=== PATIENT | female | born 1955 | race Caucasian/White ===

== ENCOUNTER 2017-07-16 14:36 | Inpatient (IN) | payer OTHER ==
[~2017-07-16] VITALS: Ht 165.1 cm; Wt 64.2 kg
[2017-07-16 16:00] VITALS: BP 141/70; PULSE 60; RESP 18; TEMP 98.4; O2SAT 99
[2017-07-16] MEDS ORDERED: cloNIDine HCL 0.1 MG TAB PO PRN (17:45)
[2017-07-16] MEDS ORDERED: hydrOXYzine HCL 50 MG TAB PO PRN (17:45)
[2017-07-16] MEDS ORDERED: ACETAMINOPHEN 325 MG TAB PO PRN (17:45)
[2017-07-16] MEDS ORDERED: BENZTROPINE MESYLATE 1 MG TAB PO PRN (17:45)
[2017-07-16] MEDS ORDERED: MAGNESIUM HYDROXIDE SUSP 30 ML CUP PO PRN (17:45)
[2017-07-16] MEDS ORDERED: DEXTROSE 50% IN WATER 50 ML VIAL(D50) IV PUSH PRN (17:45)
[2017-07-16] MEDS ORDERED: ALUMINUM/MAGNESIUM/SIMETH 30 ML CUP PO PRN (17:45)
[2017-07-16] MEDS ORDERED: GLUCAGON 1 MG/ML VIAL OTHER PRN (17:45)
[2017-07-16] MEDS ORDERED: BENZTROPINE MESYLATE 2 MG/2 ML VIAL IM PRN (17:45)
[2017-07-16] MEDS ORDERED: NICOTINE 21 MG/24 HR PATCH T-DERMAL PRN (20:30)
[2017-07-16] MEDS ORDERED: PILL SPLITTER OTHER PRN (20:45)
[2017-07-16] MEDS ORDERED: amLODIPine BESYLATE 5 MG TAB PO SCH (21:00)
[2017-07-16] MEDS: INSULIN ASPART SUPPLEMENTAL SCALE SQ SCH (21:00)
[2017-07-16] MEDS ORDERED: LISINOPRIL 20 MG TAB PO SCH (21:00)
[2017-07-17 06:51] VITALS: BP 170/69; PULSE 66; RESP 16; TEMP 97.9; O2SAT 98
[2017-07-17] MEDS: INSULIN ASPART SUPPLEMENTAL SCALE SQ SCH ×4 (07:30→21:00)
[2017-07-17] MEDS: REMOVE OLD NICOTINE PATCH T-DERMAL SCH (08:26)
[2017-07-17] MEDS ORDERED: PANTOPRAZOLE SOD 40 MG DELAYED RELEASE TAB PO SCH (09:00)
--- NOTE | 2017-07-17 09:52 | PD.CONS ---
HPI Service [facility] Hospitalists Consult Requested By Primary Care Physician Unknown Diagnoses: History of Present Illness This is a 61-year-old female with a past medical history which includes Hypertension, hypothyroidism, chronic lower back pain, diabetes mellitus, GERD, gout. Patient admitted to the inpatient psychiatric center for adjustment disorder after a recent suicide attempt and hospitalization at [facility]. Patient was initially admitted on 07/11/2017 after an attempted suicide with ingestion of approximately 30 trazodone 50 mg each. Patient was initially intubated and treated in ICU was then extubated 07/13/17. Patient was hospitalized she was treated for aspiration pneumonitis was on cefepime and vancomycin for approximately 48 hours prior to then DC'd. We've been consulted for assistance with management of chronic medical conditions and lisinopril dosing. Patient complaining of vaginal yeast infection. Patient offers no other complaints at this time. Review of Systems Constitutional: DENIES: Fatigue, Fever, Chills Eyes: DENIES: Blurred vision, Diplopia, Vision loss Respiratory: COMPLAINS OF: Cough (nonproductive), DENIES: Sputum production, Shortness of breath Cardiovascular: DENIES: Chest pain, Palpitations, Dyspnea on Exertion, Lower Extremity Edema Gastrointestinal: DENIES: Abdominal pain, Constipation, Diarrhea, Nausea, Vomiting Neurologic: DENIES: Abnormal gait, Localized weakness, Speech Problems Psychiatric: DENIES: Anxiety, Confusion, Depression Past Family Social History Past Medical History Hypertension, hypothyroidism, chronic lower back pain, diabetes mellitus, GERD, gout Past Surgical History Appendectomy, colonoscopy, EGD with biopsy, foot surgery, gallbladder surgery, hemorrhoidectomy, left hip surgery, incisional breast biopsy, knee arthroscopically Reported Medications Amlodipine 5 mg by mouth one tablet daily Diclofenac sodium 50 mg one tablet by mouth every 12 hours fluoxetine 20 mg 2 capsules by mouth every morning Gabapentin 400 mg one capsule 4 times a day. Levothyroxine 137 mcg 1 tablet daily Lisinopril 40 mg 2 tablets at bedtime Pantoprazole 40 mg one tablet every morning Vitamin D 50,000 units 1 capsule weekly Allergies: Coded Allergies: Penicillins (Unverified Allergy, Unknown, 07/16/17) Active Ordered Medications Current Medications Medications (Trade) Dose Ordered Sig/Varun Route Start Time Stop Time Status Last Admin (Benadryl) 50 mg HS PRN PO 07/16/17 17:45 (Tylenol) 650 mg Q4H PRN PO 07/16/17 17:45 (Milk Of Magnesia Liq) 30 ml DAILY PRN PO 07/16/17 17:45 (Mag-Al Plus Susp Liq) 30 ml Q6H PRN PO 07/16/17 17:45 (Habitrol 21 Mg Patch.24 Hr) 1 patch DAILY PRN T-DERMAL 07/16/17 20:30 (Atarax) 50 mg Q6H PRN PO 07/16/17 17:45 (Cogentin) 1 mg Q12H PRN PO 07/16/17 17:45 (Cogentin Inj) 1 mg Q12H PRN IM 07/16/17 17:45 (D50w (Vial) Inj) 50 ml UNSCH PRN IV PUSH 07/16/17 17:45 (Glucagon Inj) 1 mg UNSCH PRN OTHER 07/16/17 17:45 (NovoLOG SUPPLEMENTAL SCALE) 1 ACHS SLIDING SCALE SQ 07/16/17 21:00 (Norvasc) 5 mg HS PO 07/16/17 21:00 07/16/17 22:12 (Prinivil) 40 mg HS PO 07/16/17 21:00 07/16/17 22:12 (Synthroid) 125 mcg DAILY@0600 PO 07/17/17 06:00 (Protonix) 40 mg DAILY PO 07/17/17 09:00 07/17/17 08:23 (Catapres) 0.1 mg Q8HR PRN PO 07/16/17 17:45 Miscellaneous Information 1 DAILY T-DERMAL 07/17/17 09:00 (Synthroid) 12.5 mcg DAILY@0600 PO 07/17/17 06:00 (Pill Splitter) 1 ea UNSCH PRN OTHER 07/16/17 20:45 Family History noncontributory Social History EtOH use Current smoker Physical Exam Vital Signs Vital Signs Date Time Temp Pulse Resp B/P (MAP) Pulse Ox O2 Delivery O2 Flow Rate FiO2 07/17/17 06:51 97.9 66 16 170/69 (102) 98 07/16/17 16:00 98.4 60 18 141/70 (93) 99 Physical Exam GENERAL: This is a well-nourished, well-developed patient, in no apparent distress. SKIN: No rashes, ecchymoses or lesions. Cool and dry. HEAD: Atraumatic. Normocephalic. No temporal or scalp tenderness. EYES: Extraocular motions intact. No scleral icterus. No injection or drainage. ENT: Nose without bleeding, purulent drainage or septal hematoma. Throat without erythema, tonsillar hypertrophy or exudate. Uvula midline. Airway patent. NECK: Trachea midline. No JVD or lymphadenopathy. Supple, nontender, no meningeal signs. CARDIOVASCULAR: Regular rate and rhythm without murmurs, gallops, or rubs. RESPIRATORY: Clear to auscultation. Breath sounds equal bilaterally. No wheezes , rales, or rhonchi. GASTROINTESTINAL: Abdomen soft, non-tender, nondistended. MUSCULOSKELETAL: Extremities without clubbing, cyanosis, or edema. No joint tenderness, effusion, or edema noted. No calf tenderness. Negative Homans sign bilaterally. NEUROLOGICAL: Awake and alert. Cranial nerves II through XII intact. Motor and sensory grossly within normal limits. Five out of 5 muscle strength in all muscle groups. Normal speech. Assessment and Plan Problem List: (1) Adjustment disorder ICD Codes: F43.20 - Adjustment disorder, unspecified Plan: Patient with recent suicide attempt Management per psychiatric team (2) Diabetes mellitus ICD Codes: E11.9 - Type 2 diabetes mellitus without complications Status: Chronic Plan: diabetic diet accucheck ACHS (3) GERD (gastroesophageal reflux disease) ICD Codes: K21.9 - Gastro-esophageal reflux disease without esophagitis Plan: Protonix (4) Vaginal yeast infection ICD Codes: B37.3 - Candidiasis of vulva and vagina Plan: Diflucan by mouth 3 days (5) Hypothyroidism ICD Codes: E03.9 - Hypothyroidism, unspecified Plan: Continue home levothyroxine 137.5 mcg per day TSH pending (6) HTN (hypertension) ICD Codes: I10 - Essential (primary) hypertension Plan: Continue home Norvasc 5 mg daily will change lisinopril to 20 mg BID Clonidine as needed Monitor blood pressure trended chest as necessary Assessment and Plan Patient examined. Assessment and plan formulated with Eduarda Kovacs PA-C. I agree with the above. Problem Qualifiers (1) Diabetes mellitus: Eduarda Kovacs Jul 17, 2017 09:52 Geraldo Montez DO Jul 23, 2017 00:17
[2017-07-17] MEDS ORDERED: AMLO5TAB2 PO (10:04)
[2017-07-17] MEDS ORDERED: LISI40TA PO (10:07)
[2017-07-17] MEDS ORDERED: FLUO40CA PO (10:09)
[2017-07-17] MEDS ORDERED: LEVO137T2 PO (10:09)
[2017-07-17] MEDS ORDERED: PANT40TA3 PO (10:10)
[2017-07-17 10:13] LABS: AUTOMATED NEUTROPHIL # 3.3 TH/MM3 (1.8-7.7); BASOPHIL % 0.5 % (0.0-2.0); EOSINOPHIL # 0.2 TH/MM3 (0-0.4); EOSINOPHIL % 3.8 % (0.0-4.0); HEMATOCRIT 32.5 % (35.0-46.0); LYMPH % 16.7 % (9.0-44.0); LYMPHOCYTE # 0.8 TH/MM3 (1.0-4.8); MEAN CELL VOLUME 91.5 FL (80.0-100.0); MEAN CORPUSCULAR HEMOGLOBIN 30.9 PG (27.0-34.0); MEAN CORPUSCULAR HGB CONC 33.8 % (32.0-36.0); MEAN PLATELET VOLUME 9.9 FL (7.0-11.0); MONO % 11.7 % (0.0-8.0); MONOCYTE # 0.6 TH/MM3 (0-0.9); NEUT % 67.3 % (16.0-70.0); PLATELET COUNT 85 TH/MM3 (150-450); RED BLOOD COUNT 3.55 MIL/MM3 (4.00-5.30); RED CELL DISTRIBUTION WIDTH 14.4 % (11.6-17.2); WHITE BLOOD COUNT 4.9 TH/MM3 (4.0-11.0)
[2017-07-17 10:15] VITALS: BP 153/65; PULSE 57; RESP 18; TEMP 98.3; O2SAT 97
[2017-07-17 10:46] LABS: ALBUMIN 1.9 GM/DL (3.4-5.0); AST (GOT) 34 U/L (15-37); BICARBONATE 27.5 MEQ/L (21.0-32.0); BLOOD UREA NITROGEN 12 MG/DL (7-18); CALCIUM 8.2 MG/DL (8.5-10.1); CHLORIDE 104 MEQ/L (98-107); CREATININE 0.86 MG/DL (0.50-1.00); GLOMERULAR FILTRATION RATE 67 ML/MIN (>89); GLUCOSE,RANDOM 166 MG/DL (74-106); SODIUM (NA) 140 MEQ/L (136-145)
[2017-07-17 10:47] LABS: CHOLESTEROL 95 MG/DL (120-200); TRIGLYCERIDES 128 MG/DL (42-150)
[2017-07-17 10:57] LABS: ALKALINE PHOSPHATASE 70 U/L (45-117); ALT (GPT) 21 U/L (10-53); CHOLESTEROL/ HDL RATIO 4.61 RATIO; HDL CHOLESTEROL 20.6 MG/DL (40.0-60.0); LDL CHOLESTEROL 49 MG/DL (0-99); TOTAL BILIRUBIN ADULT 0.6 MG/DL (0.2-1.0); TOTAL PROTEIN 5.2 GM/DL (6.4-8.2)
[2017-07-17] MEDS: FLUCONAZOLE 100 MG TAB PO SCH (11:37)
[2017-07-17] MEDS ORDERED: cloNIDine HCL 0.1 MG TAB PO PRN (11:45)
[2017-07-17] MEDS ORDERED: LISINOPRIL 20 MG TAB PO SCH (12:00)
[2017-07-17] MEDS ORDERED: hydrOXYzine HCL 50 MG TAB PO PRN (14:30)
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
[2017-07-17 17:22] LABS: HEMOGLOBIN A1C 5.5 % (4.3-6.0)
[2017-07-17 18:45] VITALS: BP 142/66; PULSE 59; RESP 16; TEMP 99; O2SAT 98
[2017-07-17 18:46] VITALS: BP 142/66; PULSE 59; RESP 16; TEMP 99; O2SAT 98
--- NOTE | 2017-07-17 21:27 | EKG ---
Date Performed: 07/17/2017 Time Performed: 08:30:44 PTAGE: 61 years EKG: Sinus rhythm POSSIBLE ANTERIOR MYOCARDIAL INFARCTION , PROBABLY OLD BORDERLINE ECG NO PREVIOUS TRACING DOCTOR: Miguel Angel Flores Interpretating Date/Time 07/17/2017 21:26:12
[2017-07-17] MEDS: ARIPiprazole 10 MG TAB PO SCH (21:51)
[2017-07-17] MEDS: amLODIPine BESYLATE 5 MG TAB PO SCH (21:51)
[2017-07-17] MEDS: LISINOPRIL 20 MG TAB PO SCH (21:51)
[2017-07-18] MEDS: LEVOTHYROXINE SODIUM 125 MCG TAB PO SCH ×2 (05:51→05:53)
[2017-07-18] MEDS: LEVOTHYROXINE SODIUM 25 MCG TAB PO SCH ×2 (05:51→05:54)
[2017-07-18 05:53] VITALS: BP 136/61; PULSE 58; RESP 17; TEMP 98.9; O2SAT 100
[2017-07-18] MEDS: INSULIN ASPART SUPPLEMENTAL SCALE SQ SCH ×4 (08:00→21:00)
[2017-07-18] MEDS ORDERED: NON-FORMULARY DRUG (Levothyroxine 137 MCG) PO SCH (09:00)
[2017-07-18] MEDS ORDERED: FLUoxetine HCL 20 MG CAP PO SCH (09:00)
[2017-07-18] MEDS: PANTOPRAZOLE SOD 40 MG DELAYED RELEASE TAB PO SCH (09:56)
[2017-07-18] MEDS: FLUoxetine HCL 20 MG CAP PO SCH (09:57)
[2017-07-18] MEDS: FLUCONAZOLE 100 MG TAB PO SCH (09:57)
[2017-07-18] MEDS: REMOVE OLD NICOTINE PATCH T-DERMAL SCH (09:57)
--- NOTE | 2017-07-18 13:31 | HHI.PYPN ---
Subjective Chief Complaint: depressed with suicide attempt Remarks Patient was seen and case discussed with nursing. Patient is feeling guilty and shameful about her suicide attempt. She describes various stressors at home that caused her to overdose. She is not going to any groups and largely keeps to herself. Affect is constricted and mood remains depressed. She however denies suicidal or homicidal ideation intent or plan. She is tolerating her medications well Mental Status Examination Appearance: Appropriate Consciousness: Alert Orientation: x4 Motor Activity: Normal gait Speech: Unremarkable Language: Adequate Fund of Knowledge: Adequate Attention and Concentration: Adequate Memory: Unremarkable Mood: Sad, Anxious (mildly) Affect: Other Thought Process & Associations: Intact Thought Content: Appropriate Hallucination Type: None Delusion Type: None Suicidal Ideation: No (denies at the present time) Suicidal Plan: No Suicidal Intention: No Homicidal Ideation: No Homicidal Plan: No Homicidal Intention: No Insight: Fair Judgment: Adequate Results Vitals/IOs Vital Signs Date Time Temp Pulse Resp B/P (MAP) Pulse Ox O2 Delivery O2 Flow Rate FiO2 07/18/17 05:53 98.9 58 17 136/61 (86) 100 Assessment & Plan Problem List: (1) Major depressive disorder, recurrent severe without psychotic features ICD Codes: F33.2 - Major depressive disorder, recurrent severe without psychotic features Assessment & Plan Continue current treatment plan Justification for Cont. Inpt. Patient would decompensate in a less restrictive setting Request HC Surrog/Guard Advoc?: No Per Hamm DO Jul 18, 2017 13:31
[2017-07-18 18:22] VITALS: BP 151/66; PULSE 56; RESP 17; TEMP 98.3; O2SAT 96
[2017-07-18] MEDS: ARIPiprazole 10 MG TAB PO SCH (21:58)
[2017-07-18] MEDS: LISINOPRIL 20 MG TAB PO SCH (21:58)
[2017-07-18] MEDS: amLODIPine BESYLATE 5 MG TAB PO SCH (21:59)
[2017-07-19] MEDS: LEVOTHYROXINE SODIUM 125 MCG TAB PO SCH (06:29)
[2017-07-19] MEDS: LEVOTHYROXINE SODIUM 25 MCG TAB PO SCH (06:29)
[2017-07-19] MEDS: INSULIN ASPART SUPPLEMENTAL SCALE SQ SCH ×4 (08:00→21:00)
[2017-07-19] MEDS: REMOVE OLD NICOTINE PATCH T-DERMAL SCH (09:00)
[2017-07-19] MEDS: FLUoxetine HCL 20 MG CAP PO SCH (09:30)
[2017-07-19] MEDS: FLUCONAZOLE 100 MG TAB PO SCH (09:31)
[2017-07-19] MEDS: PANTOPRAZOLE SOD 40 MG DELAYED RELEASE TAB PO SCH (09:31)
--- NOTE | 2017-07-19 12:51 | HHI.PYPN ---
Subjective Chief Complaint: depressed with suicide attempt Remarks Patient was seen and case discussed with nursing. Patient is pleasant and cooperative with exam. She is largely seclusive to her room and was encouraged to come out. Patient says her mood today is a 5 out of 10 and feels that she is sleeping too much. She denies suicidal or homicidal ideation intent or plan. Affect remains quite blunted Mental Status Examination Appearance: Appropriate Consciousness: Alert Orientation: x4 Motor Activity: Normal gait Speech: Unremarkable Language: Adequate Fund of Knowledge: Adequate Attention and Concentration: Adequate Memory: Unremarkable Mood: Sad, Anxious (mildly) Affect: Blunt Thought Process & Associations: Intact Thought Content: Appropriate Hallucination Type: None Delusion Type: None Suicidal Ideation: No (denies at the present time) Suicidal Plan: No Suicidal Intention: No Homicidal Ideation: No Homicidal Plan: No Homicidal Intention: No Insight: Fair Judgment: Adequate Results Vitals/IOs Vital Signs Date Time Temp Pulse Resp B/P (MAP) Pulse Ox O2 Delivery O2 Flow Rate FiO2 07/18/17 18:22 98.3 56 17 151/66 (94) 96 Assessment & Plan Problem List: (1) Major depressive disorder, recurrent severe without psychotic features ICD Codes: F33.2 - Major depressive disorder, recurrent severe without psychotic features Assessment & Plan Continue current treatment plan Justification for Cont. Inpt. Patient will decompensate in a less restrictive setting Request HC Surrog/Guard Advoc?: No Per Hamm DO Jul 19, 2017 12:51
[2017-07-19 16:16] VITALS: BP 131/63; PULSE 55; RESP 18; TEMP 98.6; O2SAT 96
[2017-07-19] MEDS: amLODIPine BESYLATE 5 MG TAB PO SCH (21:52)
[2017-07-19] MEDS: LISINOPRIL 20 MG TAB PO SCH (21:52)
[2017-07-19] MEDS: ARIPiprazole 10 MG TAB PO SCH (21:52)
[2017-07-20] MEDS: LEVOTHYROXINE SODIUM 125 MCG TAB PO SCH (06:11)
[2017-07-20] MEDS: LEVOTHYROXINE SODIUM 25 MCG TAB PO SCH (06:11)
[2017-07-20 06:18] VITALS: BP 125/54; PULSE 59; RESP 16; TEMP 97.8; O2SAT 98
[2017-07-20] MEDS: INSULIN ASPART SUPPLEMENTAL SCALE SQ SCH ×4 (08:00→20:52)
[2017-07-20] MEDS: REMOVE OLD NICOTINE PATCH T-DERMAL SCH (09:00)
[2017-07-20] MEDS: PANTOPRAZOLE SOD 40 MG DELAYED RELEASE TAB PO SCH (09:28)
[2017-07-20] MEDS: FLUoxetine HCL 20 MG CAP PO SCH (09:28)
--- NOTE | 2017-07-20 15:19 | HHI.PYPN ---
Subjective Chief Complaint: depressed with suicide attempt Remarks Patient seen in her room with counselor Asia and nurse Barbara, chart review, patient compliant medication. If remains quite depressed crying and sad. She has some insight into her need to put more effort in focus on herself, but the grandchildren that are involved. It appears her is flying down there is some is seeking definitive flight. At the present time patient remains quite depressed though she does denies suicidality at this time. For now continue treatment will increase at bedtime Abilify to 15 mg Review of Systems Except as stated in HPI: all other systems reviewed are Neg Mental Status Examination Appearance: Appropriate Consciousness: Alert Orientation: x4 Motor Activity: Normal gait Speech: Unremarkable Language: Adequate Fund of Knowledge: Adequate Attention and Concentration: Adequate Memory: Unremarkable Mood: Sad, Anxious (mildly) Affect: Blunt Thought Process & Associations: Intact Thought Content: Appropriate Hallucination Type: None Delusion Type: None Suicidal Ideation: No (denies at the present time) Suicidal Plan: No Suicidal Intention: No Homicidal Ideation: No Homicidal Plan: No Homicidal Intention: No Insight: Fair Judgment: Adequate Results Vitals/IOs Vital Signs Date Time Temp Pulse Resp B/P (MAP) Pulse Ox O2 Delivery O2 Flow Rate FiO2 07/20/17 06:18 97.8 59 16 125/54 (77) 98 Intake and Output 07/20/17 07/20/17 07/21/17 08:00 16:00 00:00 Intake Total 240 ml 240 ml Balance 240 ml 240 ml Assessment & Plan Problem List: (1) Major depressive disorder, recurrent severe without psychotic features ICD Codes: F33.2 - Major depressive disorder, recurrent severe without psychotic features Assessment & Plan Estimated LOS: days patient continues severely depressed crying sad decreased range intensity of her affect. Will increase at bedtime Abilify to 15 mg Justification for Cont. Inpt. At this time patient will decompensate if placed in a lower level of care Discharge Planning Need to discuss this with patient's when he arrives the next 1-2 days Request HC Surrog/Guard Advoc?: No Zeyad Mendoza MD Jul 20, 2017 15:19
--- NOTE | 2017-07-20 16:59 | PD.TTN ---
Patient Problems 1. Discharge planning 2. Medication compliance 3. Knowledge deficit 4. Lack of coping skills Progress Toward Goals Provider Present: Dr. Oswaldo Mendoza Provider Input: 07/20/2017; patient is stablizing with medication; assess for oupatient service Nurse(s) Present: RN Nurse(s) Input: 07/20/2017; Patient is eating and taking medication; very sad and depressed Psychiatric Counselors Present: DARI Chaudhary Psych Therapist Input: 07/20/2017; patient will be assess for outpatient service and dc needs Group Spec/RT/OT/QUIGLEY Present: Tito Javier OT Group Spec/RT/OT/QUIGLEY Input: 07/20/2017; patient is a new admission and will be assess for level of participation with groups Documentation Scribe: DARI Chaudhary Sandra LMHC Jul 20, 2017 16:59
[2017-07-20 18:40] VITALS: BP 128/60; PULSE 55; RESP 16; TEMP 98.3; O2SAT 97
[2017-07-20] MEDS: ARIPiprazole 15 MG TAB PO SCH (21:42)
[2017-07-20] MEDS: LISINOPRIL 20 MG TAB PO SCH (21:43)
[2017-07-20] MEDS: amLODIPine BESYLATE 5 MG TAB PO SCH (21:43)
[2017-07-21] MEDS: LEVOTHYROXINE SODIUM 25 MCG TAB PO SCH (05:26)
[2017-07-21] MEDS: LEVOTHYROXINE SODIUM 125 MCG TAB PO SCH (05:26)
[2017-07-21 06:18] VITALS: BP 119/53; PULSE 62; RESP 17; TEMP 98.7; O2SAT 96
[2017-07-21] MEDS: INSULIN ASPART SUPPLEMENTAL SCALE SQ SCH ×4 (08:00→20:20)
[2017-07-21] MEDS: REMOVE OLD NICOTINE PATCH T-DERMAL SCH (09:00)
[2017-07-21] MEDS: FLUoxetine HCL 20 MG CAP PO SCH (09:42)
[2017-07-21] MEDS: PANTOPRAZOLE SOD 40 MG DELAYED RELEASE TAB PO SCH (09:42)
--- NOTE | 2017-07-21 13:08 | HHI.PYPN ---
Subjective Chief Complaint: depressed with suicide attempt Remarks Patient seen in her room with nurse Elizabet, chart reviewed, patient compliant medication patient's mood continues to improve. There is somewhat better eye contact improved range intensity of her affect. Patient states she's been in contact with . He hopes to flying down here on the day she is discharged to stay with her in her apartment. Patient also states she would like to return to [facility] with him directly from her apartment. I feel patient is improving practitioner arrange for this discharge plan in the next 2- 3 days Review of Systems Except as stated in HPI: all other systems reviewed are Neg Mental Status Examination Appearance: Appropriate Consciousness: Alert Orientation: x4 Motor Activity: Normal gait Speech: Unremarkable Language: Adequate Fund of Knowledge: Adequate Attention and Concentration: Adequate Memory: Unremarkable Mood: Sad, Anxious (mildly) Affect: Blunt Thought Process & Associations: Intact Thought Content: Appropriate Hallucination Type: None Delusion Type: None Suicidal Ideation: No (denies at the present time) Suicidal Plan: No Suicidal Intention: No Homicidal Ideation: No Homicidal Plan: No Homicidal Intention: No Insight: Fair Judgment: Adequate Results Vitals/IOs Vital Signs Date Time Temp Pulse Resp B/P (MAP) Pulse Ox O2 Delivery O2 Flow Rate FiO2 07/21/17 06:18 98.7 62 17 119/53 (75) 96 Intake and Output 07/21/17 07/21/17 07/21/17 07:59 15:59 23:59 Intake Total 480 ml Balance 480 ml Assessment & Plan Problem List: (1) Major depressive disorder, recurrent severe without psychotic features ICD Codes: F33.2 - Major depressive disorder, recurrent severe without psychotic features Assessment & Plan Estimated LOS: days patient's depression is slowly resolving. She showing some insight into need to gain further independence to work with her also to little ways of asserting herself Justification for Cont. Inpt. Is time patient will decompensate if placed in a lower level of care Discharge Planning Possible going with from her apartment to [facility] soon Request HC Surrog/Guard Advoc?: No Zeyad Mendoza MD Jul 21, 2017 13:08
[2017-07-21 17:51] VITALS: BP 138/60; PULSE 65; RESP 17; TEMP 99.2; O2SAT 97
[2017-07-21 20:30] VITALS: BP 146/66; PULSE 59; RESP 16; TEMP 98.9; O2SAT 100
[2017-07-21] MEDS: amLODIPine BESYLATE 5 MG TAB PO SCH (20:30)
[2017-07-21] MEDS: ARIPiprazole 15 MG TAB PO SCH (20:30)
[2017-07-21] MEDS: diphenhydrAMINE HCL 50 MG CAP PO PRN (20:30)
[2017-07-21] MEDS: LISINOPRIL 20 MG TAB PO SCH (20:30)
[2017-07-21] MEDS: diphenhydrAMINE HCL 50 MG CAP PO SCH (22:17)
[2017-07-22] MEDS: diphenhydrAMINE HCL 50 MG CAP PO SCH ×4 (04:04→21:23)
[2017-07-22 05:43] VITALS: BP 127/56; PULSE 57; RESP 16; TEMP 99.4
[2017-07-22] MEDS: LEVOTHYROXINE SODIUM 25 MCG TAB PO SCH (05:54)
[2017-07-22] MEDS: LEVOTHYROXINE SODIUM 125 MCG TAB PO SCH (05:54)
[2017-07-22] MEDS: INSULIN ASPART SUPPLEMENTAL SCALE SQ SCH ×2 (07:39→12:00)
[2017-07-22] MEDS: FLUoxetine HCL 20 MG CAP PO SCH (08:47)
[2017-07-22] MEDS: PANTOPRAZOLE SOD 40 MG DELAYED RELEASE TAB PO SCH (08:47)
[2017-07-22] MEDS: REMOVE OLD NICOTINE PATCH T-DERMAL SCH (08:49)
--- NOTE | 2017-07-22 14:28 | HHI.PYPN ---
Subjective Chief Complaint: depressed with suicide attempt Remarks Patient seen in her room with nurse caro, chart review patient compliant medications. Patient still depressed though it appears to be lifting somewhat. There is some anxiety related to discharge plans and her relationship with her family. However it appears her will be flying down here on Thursday. If patient continues to improve we'll consider discharge to her on 07/26 with possibility of she returning to [facility] with him is also noted the patient has developed on non-pruritic geographic appearing somewhat erythematous rash is basically truncal and down her upper legs. We'll have hospitalists assess this Review of Systems Except as stated in HPI: all other systems reviewed are Neg Mental Status Examination Appearance: Appropriate Consciousness: Alert Orientation: x4 Motor Activity: Normal gait Speech: Unremarkable Language: Adequate Fund of Knowledge: Adequate Attention and Concentration: Adequate Memory: Unremarkable Mood: Sad, Anxious (mildly) Affect: Blunt Thought Process & Associations: Intact Thought Content: Appropriate Hallucination Type: None Delusion Type: None Suicidal Ideation: No (denies at the present time) Suicidal Plan: No Suicidal Intention: No Homicidal Ideation: No Homicidal Plan: No Homicidal Intention: No Insight: Fair Judgment: Adequate Results Vitals/IOs Vital Signs Date Time Temp Pulse Resp B/P (MAP) Pulse Ox O2 Delivery O2 Flow Rate FiO2 07/22/17 05:43 99.4 57 16 127/56 (79) 07/21/17 20:30 100 Assessment & Plan Problem List: (1) Major depressive disorder, recurrent severe without psychotic features ICD Codes: F33.2 - Major depressive disorder, recurrent severe without psychotic features Assessment & Plan Estimated LOS: days patient continues depressed though showing some mild improvement. She is continuing to be significantly concerned related to relationship with her family. Her will be flying down here on 07/26. Patient continues to improve we'll consider discharge to him the possible return to [facility] with him will have hospitalist assess patient's rash Justification for Cont. Inpt. At this time patient will decompensate and placed in a lower level of care Discharge Planning See above Request HC Surrog/Guard Advoc?: No Zeyad Mendoza MD Jul 22, 2017 14:28
[2017-07-22] MEDS ORDERED: predniSONE 20 MG TAB PO ONE (16:00)
--- NOTE | 2017-07-22 16:07 | HHI.PR ---
Subjective Remarks [facility] Hospitalist team was re-consulted due to a new rash that began yesterday evening. The rash is located on her chest/trunk/back/upper extremities and more so on the upper thighs although it does extend down the calves She does not feel that its very pruritic at this time Denies any fevers or chills. No nausea/vomiting, diarrhea, abd pain, chest pain. She states that she has a sore throat which has been present since prior to her getting intubated at [facility]. Objective Vitals Vital Signs Date Time Temp Pulse Resp B/P (MAP) Pulse Ox O2 Delivery O2 Flow Rate FiO2 07/22/17 05:43 99.4 57 16 127/56 (79) 07/21/17 20:30 98.9 59 16 146/66 (92) 100 07/21/17 17:51 99.2 65 17 138/60 (86) 97 Objective Remarks General: NAD, AAOx3 Skin: Erythematous, maculopapular rash on the neck/trunk/chest/back/UE and upper thighs that blanches and is confluent in some areas. There are some areas on the calves that seem to be centered around follicles. There is erythema on the palms of the hands as well ENT: Thrush on the tongue and slight exudate in the posterior pharynx. No mucous membrane involvement. Chest: CTA Cardiac: Regular, systolic murmur Abd: +BS, soft ND/NT Ext: no edema A/P Problem List: (1) Adjustment disorder ICD Codes: F43.20 - Adjustment disorder, unspecified Plan: - Patient with recent suicide attempt - Management per psychiatric team (2) Rash and nonspecific skin eruption ICD Codes: R21 - Rash and other nonspecific skin eruption Status: Acute Plan: - Pt developed a diffuse rash on 06/20/17 which is maculopapular nonpruritic rash on the neck/trunk/chest/back/UE and upper thighs that blanches and is confluent in some areas. There are some areas on the calves that seem to be centered around follicles. There is erythema on the palms of the hands as well - There was no noted mucosal or conjunctival involvement - Consider possible drug rash, new medications she recently received are Abilify and Diflucan - She has been receiving Benadryl 50mg Q6H - Start Prednisone 60mg po x one dose today and 30mg po BID to start tomorrow - Check UA - Check CBC, CMP, ESR - Throat culture - Blood culture - Monitor clinical status (3) Diabetes mellitus ICD Codes: E11.9 - Type 2 diabetes mellitus without complications Status: Chronic Plan: - Diabetic diet - Accu check ACHS - Stop NovoLog SSI for now. BS has been stable. (4) GERD (gastroesophageal reflux disease) ICD Codes: K21.9 - Gastro-esophageal reflux disease without esophagitis Plan: - Protonix (5) Vaginal yeast infection ICD Codes: B37.3 - Candidiasis of vulva and vagina Plan: - Pt was given Diflucan by mouth 3 days (07/17-07/19) - Pt still with some noted thrush on examination - Given Nystatin S/S (6) Hypothyroidism ICD Codes: E03.9 - Hypothyroidism, unspecified Plan: - Continue home levothyroxine 137.5 mcg per day - TSH 2.010 (7) HTN (hypertension) ICD Codes: I10 - Essential (primary) hypertension Plan: - Pts Lisinopril was increased to 80mg HS on 07/17/17 - Change back to Lisinopril 20mg po BID and increase Norvasc to 10mg daily - Clonidine as needed - Monitor Problem Qualifiers (1) Diabetes mellitus: Nusrat Parra Jul 22, 2017 16:07
[2017-07-22 18:23] VITALS: BP 112/56; PULSE 76; RESP 16; TEMP 98.3; O2SAT 99
[2017-07-22] MEDS: NYSTATIN SUSP 500,000 U/5 ML CUP SWISH-SWAL SCH ×2 (18:33→21:23)
[2017-07-22] MEDS: ARIPiprazole 15 MG TAB PO SCH (21:23)
[2017-07-22] MEDS: amLODIPine BESYLATE 5 MG TAB PO SCH (21:23)
[2017-07-22] MEDS: LISINOPRIL 20 MG TAB PO SCH (21:24)
[2017-07-23 02:22] LABS: BILIRUBIN, URINE NEG (NEG); BLOOD, URINE NEG (NEG); GLUCOSE,URINE TRACE mg/dL (NEG); KETONE, URINE NEG (NEG); MUCUS URINE FEW /lpf (OCC); NITRITE,URINE NEG (NEG); SQUAMOUS EPITHELIAL CELL URINE 5 /hpf (0-5); URINE COLOR LIGHT-YELLOW (YELLW/STRAW); URINE LEUKOCYTE ESTERASE TRACE (NEG)
[2017-07-23] MEDS: diphenhydrAMINE HCL 50 MG CAP PO SCH ×3 (04:38→16:05)
[2017-07-23] MEDS: LEVOTHYROXINE SODIUM 25 MCG TAB PO SCH (04:38)
[2017-07-23] MEDS: LEVOTHYROXINE SODIUM 125 MCG TAB PO SCH (04:39)
[2017-07-23 06:05] VITALS: BP 119/65; PULSE 71; RESP 16; TEMP 98.1; O2SAT 100
[2017-07-23] MEDS ORDERED: predniSONE 10 MG TAB PO SCH (09:00)
[2017-07-23] MEDS: REMOVE OLD NICOTINE PATCH T-DERMAL SCH (09:00)
[2017-07-23] MEDS: FLUoxetine HCL 20 MG CAP PO SCH (09:24)
[2017-07-23] MEDS: PANTOPRAZOLE SOD 40 MG DELAYED RELEASE TAB PO SCH (09:25)
[2017-07-23] MEDS: NYSTATIN SUSP 500,000 U/5 ML CUP SWISH-SWAL SCH ×4 (09:25→21:00)
[2017-07-23] MEDS: amLODIPine BESYLATE 5 MG TAB PO SCH ×2 (09:26→22:31)
[2017-07-23] MEDS: LISINOPRIL 20 MG TAB PO SCH ×2 (09:26→22:31)
[2017-07-23 11:47] LABS: ALBUMIN 2.8 GM/DL (3.4-5.0); BICARBONATE 23.5 MEQ/L (21.0-32.0); CALCIUM 8.7 MG/DL (8.5-10.1); CREATININE 1.17 MG/DL (0.50-1.00); DIRECT BILIRUBIN ADULT 0.2 MG/DL (0.0-0.2)
[2017-07-23 11:50] LABS: INDIRECT BILIRUBIN 0.3 MG/DL (0.0-0.8); TOTAL BILIRUBIN ADULT 0.5 MG/DL (0.2-1.0); TOTAL PROTEIN 7.4 GM/DL (6.4-8.2)
[2017-07-23 11:51] LABS: AUTOMATED NEUTROPHIL # 6.5 TH/MM3 (1.8-7.7); BASOPHIL % 0.1 % (0.0-2.0); EOSINOPHIL % 0.1 % (0.0-4.0); LYMPH % 11.7 % (9.0-44.0); LYMPHOCYTE # 0.9 TH/MM3 (1.0-4.8); MEAN CELL VOLUME 92.9 FL (80.0-100.0); MEAN CORPUSCULAR HEMOGLOBIN 30.9 PG (27.0-34.0); MEAN CORPUSCULAR HGB CONC 33.2 % (32.0-36.0); MONO % 3.6 % (0.0-8.0); MONOCYTE # 0.3 TH/MM3 (0-0.9); NEUT % 84.5 % (16.0-70.0); PLATELET COUNT 146 TH/MM3 (150-450); RED BLOOD COUNT 3.88 MIL/MM3 (4.00-5.30); RED CELL DISTRIBUTION WIDTH 15.1 % (11.6-17.2); WHITE BLOOD COUNT 7.7 TH/MM3 (4.0-11.0)
[2017-07-23 13:04] LABS: WESTERGREN SEDIMENTATION RATE 41 mm/hr (0-30)
--- NOTE | 2017-07-23 13:17 | HHI.PYPN ---
Subjective Chief Complaint: depressed with suicide attempt Remarks Patient seen in [place] with nurse Xiao, chart reviewed, patient compliant medication. Patient somewhat anxious today because she needs to get [employer] computer to pay her rent. Otherwise she is still committed to going with the back up to [place]. He will be arriving in town on Tuesday 07/25. Patient denies suicidality homicidality voices or visions. For now continue treatment patient's rash persists remains somewhat pruritic around the superior peripheral margins Review of Systems Except as stated in HPI: all other systems reviewed are Neg Mental Status Examination Appearance: Appropriate Consciousness: Alert Orientation: x4 Motor Activity: Normal gait Speech: Unremarkable Language: Adequate Fund of Knowledge: Adequate Attention and Concentration: Adequate Memory: Unremarkable Mood: Sad, Anxious (mildly) Affect: Blunt Thought Process & Associations: Intact Thought Content: Appropriate Hallucination Type: None Delusion Type: None Suicidal Ideation: No (denies at the present time) Suicidal Plan: No Suicidal Intention: No Homicidal Ideation: No Homicidal Plan: No Homicidal Intention: No Insight: Fair Judgment: Adequate Results Labs Test 07/23/17 01:30 07/23/17 10:15 Urine Color LIGHT-YELLOW Urine Turbidity CLEAR Urine pH 6.0 Urine Specific [place] 1.003 Urine Protein NEG mg/dL Urine Glucose (UA) TRACE mg/dL Urine Ketones NEG mg/dL Urine Occult Blood NEG Urine Nitrite NEG Urine Bilirubin NEG Urine Urobilinogen LESS THAN 2.0 MG/DL Urine Leukocyte Esterase TRACE Urine RBC LESS THAN 1 /hpf Urine WBC 1 /hpf Urine Squamous Epithelial Cells 5 /hpf Urine Mucus FEW /lpf Microscopic Urinalysis Comment CULT NOT INDICATED White Blood Count 7.7 TH/MM3 Red Blood Count 3.88 MIL/MM3 Hemoglobin 12.0 GM/DL Hematocrit 36.0 % Mean Corpuscular Volume 92.9 FL Mean Corpuscular Hemoglobin 30.9 PG Mean Corpuscular Hemoglobin Concent 33.2 % Red Cell Distribution Width 15.1 % Platelet Count 146 TH/MM3 Mean Platelet Volume 11.0 FL Neutrophils (%) (Auto) 84.5 % Lymphocytes (%) (Auto) 11.7 % Monocytes (%) (Auto) 3.6 % Eosinophils (%) (Auto) 0.1 % Basophils (%) (Auto) 0.1 % Neutrophils # (Auto) 6.5 TH/MM3 Lymphocytes # (Auto) 0.9 TH/MM3 Monocytes # (Auto) 0.3 TH/MM3 Eosinophils # (Auto) 0.0 TH/MM3 Basophils # (Auto) 0.0 TH/MM3 CBC Comment DIFF FINAL Differential Comment Erythrocyte Sedimentation Rate 41 mm/hr Blood Urea Nitrogen 11 MG/DL Creatinine 1.17 MG/DL Random Glucose 257 MG/DL Total Protein 7.4 GM/DL Albumin 2.8 GM/DL Calcium Level 8.7 MG/DL Alkaline Phosphatase 87 U/L Aspartate Amino Transf (AST/SGOT) 20 U/L Alanine Aminotransferase (ALT/SGPT) 23 U/L Total Bilirubin 0.5 MG/DL Direct Bilirubin 0.2 MG/DL Sodium Level 137 MEQ/L Potassium Level 3.8 MEQ/L Chloride Level 101 MEQ/L Carbon Dioxide Level 23.5 MEQ/L Anion Gap 13 MEQ/L Estimat Glomerular Filtration Rate 47 ML/MIN Indirect Bilirubin 0.3 MG/DL Date/Time Source Procedure Growth Status 07/23/17 10:23 Blood Peripheral Aerobic Blood Culture Pending Received 07/23/17 10:23 Blood Peripheral Anaerobic Blood Culture Pending Received 07/23/17 04:30 Throat Group A Streptococcus Screen Pending Received Vitals/IOs Vital Signs Date Time Temp Pulse Resp B/P (MAP) Pulse Ox O2 Delivery O2 Flow Rate FiO2 07/23/17 06:05 98.1 71 16 119/65 (83) 100 Assessment & Plan Problem List: (1) Major depressive disorder, recurrent severe without psychotic features ICD Codes: F33.2 - Major depressive disorder, recurrent severe without psychotic features Assessment & Plan Estimated LOS: days patient mood is improving, she is excited about returning to the [facility] with her . Though she is anxious about getting her rent paid by computer today we'll have Counselor sister with that Justification for Cont. Inpt. At this time patient decompensated placed on the lower level of care Discharge Planning To discharge her probably on Tuesday 07/25 Request HC Surrog/Guard Advoc?: No Zeyad Mendoza MD Jul 23, 2017 13:17
[2017-07-23] MEDS ORDERED: methylPREDNISolone SOD SUCC 125 MG/2 ML VIAL IV PUSH ONE (16:30)
--- NOTE | 2017-07-23 16:42 | HHI.PR ---
Subjective Remarks Pts rash is relatively unchanged today Pt is afebrile No reported N/V, diarrhea, abdominal pain Objective Vitals Vital Signs Date Time Temp Pulse Resp B/P (MAP) Pulse Ox O2 Delivery O2 Flow Rate FiO2 07/23/17 06:05 98.1 71 16 119/65 (83) 100 07/22/17 18:23 98.3 76 16 112/56 (74) 99 Result Diagram: 07/23/17 1015 07/23/17 1015 Other Results Laboratory Tests Test 07/23/17 01:30 07/23/17 10:15 Urine Color LIGHT-YELLOW Urine Turbidity CLEAR Urine pH 6.0 Urine Specific [place] 1.003 Urine Protein NEG mg/dL Urine Glucose (UA) TRACE mg/dL Urine Ketones NEG mg/dL Urine Occult Blood NEG Urine Nitrite NEG Urine Bilirubin NEG Urine Urobilinogen LESS THAN 2.0 MG/DL Urine Leukocyte Esterase TRACE Urine RBC LESS THAN 1 /hpf Urine WBC 1 /hpf Urine Squamous Epithelial Cells 5 /hpf Urine Mucus FEW /lpf Microscopic Urinalysis Comment CULT NOT INDICATED White Blood Count 7.7 TH/MM3 Red Blood Count 3.88 MIL/MM3 Hemoglobin 12.0 GM/DL Hematocrit 36.0 % Mean Corpuscular Volume 92.9 FL Mean Corpuscular Hemoglobin 30.9 PG Mean Corpuscular Hemoglobin Concent 33.2 % Red Cell Distribution Width 15.1 % Platelet Count 146 TH/MM3 Mean Platelet Volume 11.0 FL Neutrophils (%) (Auto) 84.5 % Lymphocytes (%) (Auto) 11.7 % Monocytes (%) (Auto) 3.6 % Eosinophils (%) (Auto) 0.1 % Basophils (%) (Auto) 0.1 % Neutrophils # (Auto) 6.5 TH/MM3 Lymphocytes # (Auto) 0.9 TH/MM3 Monocytes # (Auto) 0.3 TH/MM3 Eosinophils # (Auto) 0.0 TH/MM3 Basophils # (Auto) 0.0 TH/MM3 CBC Comment DIFF FINAL Differential Comment Erythrocyte Sedimentation Rate 41 mm/hr Blood Urea Nitrogen 11 MG/DL Creatinine 1.17 MG/DL Random Glucose 257 MG/DL Total Protein 7.4 GM/DL Albumin 2.8 GM/DL Calcium Level 8.7 MG/DL Alkaline Phosphatase 87 U/L Aspartate Amino Transf (AST/SGOT) 20 U/L Alanine Aminotransferase (ALT/SGPT) 23 U/L Total Bilirubin 0.5 MG/DL Direct Bilirubin 0.2 MG/DL Sodium Level 137 MEQ/L Potassium Level 3.8 MEQ/L Chloride Level 101 MEQ/L Carbon Dioxide Level 23.5 MEQ/L Anion Gap 13 MEQ/L Estimat Glomerular Filtration Rate 47 ML/MIN Indirect Bilirubin 0.3 MG/DL Objective Remarks General: NAD, AAOx3 Skin: Erythematous, maculopapular rash on the neck/trunk/chest/back/UE and upper thighs that blanches and is confluent in some areas. There are some areas on the calves that seem to be centered around follicles. There is erythema on the palms of the hands as well ENT: Thrush on the tongue and slight exudate in the posterior pharynx. No mucous membrane involvement. Chest: CTA Cardiac: Regular, systolic murmur Abd: +BS, soft ND/NT Ext: no edema A/P Problem List: (1) Adjustment disorder ICD Codes: F43.20 - Adjustment disorder, unspecified Plan: - Patient with recent suicide attempt - Management per psychiatric team (2) Rash and nonspecific skin eruption ICD Codes: R21 - Rash and other nonspecific skin eruption Status: Acute Plan: - Pt developed a diffuse rash on 06/20/17 which is maculopapular nonpruritic rash on the neck/trunk/chest/back/UE and upper thighs that blanches and is confluent in some areas. There are some areas on the calves that seem to be centered around follicles. There is erythema on the palms of the hands as well - There was no noted mucosal or conjunctival involvement - Consider possible drug rash, new medications she recently received are Abilify and Diflucan - She has been receiving Benadryl 50mg Q6H, decrease down to 25mg Q8H as pr feels "foggy headed" today - Pt was given oral Prednisone but not much improvement in the rash. - Pt will need transfer to Med/Psych unit to have IV placed and started on IV Solu-Medrol 125mg po x one dose and then 60mg Q6H after that. - UA was negative. - CBC, CMP were essentially normal - ESR minimally elevated at 41 - Throat culture negative for strep - Blood culture is pending. - This appears to possibly be a drug rash. Will need to see if the Psychiatrist may have any alternatives to the Abilify to give the pt. - Monitor clinical status (3) Diabetes mellitus ICD Codes: E11.9 - Type 2 diabetes mellitus without complications Status: Chronic Plan: - Diabetic diet - Accu check ACHS - With Prednisone and Solu-Medrol. BS are increasing. Add back NovoLog SSI (4) GERD (gastroesophageal reflux disease) ICD Codes: K21.9 - Gastro-esophageal reflux disease without esophagitis Plan: - Protonix (5) Vaginal yeast infection ICD Codes: B37.3 - Candidiasis of vulva and vagina Plan: - Pt was given Diflucan by mouth 3 days (07/17-07/19) - Pt still with some noted thrush on examination - Given Nystatin S/S (6) Hypothyroidism ICD Codes: E03.9 - Hypothyroidism, unspecified Plan: - Continue home levothyroxine 137.5 mcg per day - TSH 2.010 (7) HTN (hypertension) ICD Codes: I10 - Essential (primary) hypertension Plan: - Pts Lisinopril was increased to 80mg HS on 07/17/17 - Meds changed on 07/22 to Lisinopril 20mg po BID and increase Norvasc to 10mg daily - Clonidine as needed - Monitor Problem Qualifiers (1) Diabetes mellitus: Nusrat Parra Jul 23, 2017 16:42
[2017-07-23] MEDS: INSULIN ASPART SUPPLEMENTAL SCALE SQ SCH ×2 (17:00→22:32)
[2017-07-23] MEDS ORDERED: diphenhydrAMINE HCL 50 MG CAP PO SCH (18:00)
[2017-07-23 22:30] VITALS: BP 131/61; PULSE 68; RESP 18; TEMP 98.1; O2SAT 100
[2017-07-23] MEDS: diphenhydrAMINE HCL 25 MG CAP PO SCH (22:30)
[2017-07-23] MEDS: methylPREDNISolone SOD SUCC 125 MG/2 ML VIAL IV PUSH SCH (22:33)
[2017-07-24] MEDS: diphenhydrAMINE HCL 25 MG CAP PO SCH ×3 (03:41→19:00)
[2017-07-24] MEDS: methylPREDNISolone SOD SUCC 125 MG/2 ML VIAL IV PUSH SCH ×5 (04:52→22:51)
[2017-07-24] MEDS: LEVOTHYROXINE SODIUM 125 MCG TAB PO SCH (05:09)
[2017-07-24] MEDS: LEVOTHYROXINE SODIUM 25 MCG TAB PO SCH (05:09)
[2017-07-24 06:00] VITALS: BP 122/58; PULSE 57; RESP 18; TEMP 97.6; O2SAT 98
[2017-07-24] MEDS: INSULIN ASPART SUPPLEMENTAL SCALE SQ SCH ×4 (07:26→23:12)
[2017-07-24] MEDS: NYSTATIN SUSP 500,000 U/5 ML CUP SWISH-SWAL SCH ×4 (09:00→21:00)
[2017-07-24] MEDS: REMOVE OLD NICOTINE PATCH T-DERMAL SCH (09:00)
--- NOTE | 2017-07-24 09:18 | HHI.PR ---
Subjective Remarks thinks the rash is improved slightly Objective Vitals erythematous confluent maculopapular rash involving face/scalp/back/chest/abdomen/ arm/legs and palms. on extremities more around follicle appears more faded today. Vital Signs Date Time Temp Pulse Resp B/P (MAP) Pulse Ox O2 Delivery O2 Flow Rate FiO2 07/24/17 06:00 97.6 57 18 122/58 (79) 98 07/23/17 22:30 98.1 68 18 131/61 (84) 100 Result Diagram: 07/23/17 1015 07/23/17 1015 Objective Remarks General: NAD, AAOx3 Skin: Erythematous, maculopapular rash on the neck/trunk/chest/back/UE and upper thighs that blanches and is confluent in some areas. There are some areas on the calves that seem to be centered around follicles. There is erythema on the palms of the hands as well ENT: Thrush on the tongue and slight exudate in the posterior pharynx. No mucous membrane involvement. Chest: CTA Cardiac: Regular, systolic murmur Abd: +BS, soft ND/NT Ext: no edema A/P Problem List: (1) Rash and nonspecific skin eruption ICD Codes: R21 - Rash and other nonspecific skin eruption Status: Acute Plan: - Pt developed a diffuse rash on 06/20/17 which is maculopapular nonpruritic rash on the neck/trunk/chest/back/UE and upper thighs that blanches and is confluent in some areas. There are some areas on the calves that seem to be centered around follicles. There is erythema on the palms of the hands as well - There was no noted mucosal or conjunctival involvement - Consider possible drug rash, new medications she recently received are Abilify and Diflucan - She has been receiving Benadryl 50mg Q6H, decreased down to 25mg Q8H as pr feels "foggy headed" - Pt was given oral Prednisone but not much improvement in the rash. - transferred on 07/23 to Med/Psych unit to have IV placed and started on IV Solu -Medrol 1 - UA was negative. - CBC, CMP were essentially normal - ESR minimally elevated at 41 - Throat culture negative for strep - Blood culture is pending. - This appears to possibly be a drug rash. Will need to see if the Psychiatrist may have any alternatives to the Abilify to give the pt. - Monitor clinical status...slightly improved today. continue current rx. If no improvement will need to consider alternative source and bx skin (2) Adjustment disorder ICD Codes: F43.20 - Adjustment disorder, unspecified Plan: - Patient with recent suicide attempt - Management per psychiatric team (3) Diabetes mellitus ICD Codes: E11.9 - Type 2 diabetes mellitus without complications Status: Chronic Plan: - Diabetic diet - Accu check ACHS - With Prednisone and Solu-Medrol. BS are increasing. Add back NovoLog SSI (4) GERD (gastroesophageal reflux disease) ICD Codes: K21.9 - Gastro-esophageal reflux disease without esophagitis Plan: - Protonix (5) Vaginal yeast infection ICD Codes: B37.3 - Candidiasis of vulva and vagina Plan: - Pt was given Diflucan by mouth 3 days (07/17-07/19) - Pt still with some noted thrush on examination - Given Nystatin S/S (6) Hypothyroidism ICD Codes: E03.9 - Hypothyroidism, unspecified Plan: - Continue home levothyroxine 137.5 mcg per day - TSH 2.010 (7) HTN (hypertension) ICD Codes: I10 - Essential (primary) hypertension Plan: - Pts Lisinopril was increased to 80mg HS on 07/17/17 - Meds changed on 07/22 to Lisinopril 20mg po BID and increase Norvasc to 10mg daily - Clonidine as needed - Monitor Problem Qualifiers (1) Diabetes mellitus: Nam Beltre MD Jul 24, 2017 09:18
[2017-07-24] MEDS ORDERED: PADIMATE (CHAPSTICK) 4.5 GM TUBE TOPICAL ONE (09:30)
[2017-07-24] MEDS: amLODIPine BESYLATE 5 MG TAB PO SCH ×2 (09:54→22:51)
[2017-07-24] MEDS: PANTOPRAZOLE SOD 40 MG DELAYED RELEASE TAB PO SCH (09:54)
[2017-07-24] MEDS: FLUoxetine HCL 20 MG CAP PO SCH (09:54)
[2017-07-24] MEDS: LISINOPRIL 20 MG TAB PO SCH ×2 (09:54→22:51)
[2017-07-24] MEDS ORDERED: LISI-515 PO (16:36)
[2017-07-24] MEDS ORDERED: FLUO20CA12 PO (16:36)
[2017-07-24] MEDS ORDERED: AMLO5TAB2 PO (16:36)
[2017-07-24] MEDS ORDERED: LEVO137T2 PO (16:36)
[2017-07-24] MEDS ORDERED: PANT40TA3 PO (16:36)
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
[2017-07-24 16:50] VITALS: BP 119/56; PULSE 89; RESP 17; TEMP 97.1; O2SAT 100
[2017-07-24] MEDS: diphenhydrAMINE HCL 50 MG CAP PO PRN (22:51)
[2017-07-25] MEDS: diphenhydrAMINE HCL 25 MG CAP PO SCH ×3 (03:00→17:39)
[2017-07-25] MEDS: LEVOTHYROXINE SODIUM 25 MCG TAB PO SCH (06:00)
[2017-07-25] MEDS: methylPREDNISolone SOD SUCC 125 MG/2 ML VIAL IV PUSH SCH ×3 (06:00→15:51)
[2017-07-25] MEDS: LEVOTHYROXINE SODIUM 125 MCG TAB PO SCH ×2 (06:00→07:25)
[2017-07-25 07:02] VITALS: BP 126/60; PULSE 63; RESP 16; TEMP 97.7; O2SAT 99
[2017-07-25] MEDS: INSULIN ASPART SUPPLEMENTAL SCALE SQ SCH ×3 (07:56→16:07)
[2017-07-25] MEDS: REMOVE OLD NICOTINE PATCH T-DERMAL SCH (07:59)
[2017-07-25] MEDS: NYSTATIN SUSP 500,000 U/5 ML CUP SWISH-SWAL SCH ×3 (07:59→16:07)
[2017-07-25] MEDS: PANTOPRAZOLE SOD 40 MG DELAYED RELEASE TAB PO SCH (07:59)
[2017-07-25] MEDS: FLUoxetine HCL 20 MG CAP PO SCH (07:59)
[2017-07-25] MEDS: LISINOPRIL 20 MG TAB PO SCH (07:59)
[2017-07-25] MEDS: amLODIPine BESYLATE 5 MG TAB PO SCH (07:59)
[2017-07-25] MEDS ORDERED: PADIMATE (CHAPSTICK) 4.5 GM TUBE TOPICAL PRN (09:00)
--- NOTE | 2017-07-25 09:32 | HHI.PYPN ---
Subjective Chief Complaint: depressed with suicide attempt Remarks Patient seen for follow up; chart reviewed. Patient found lying on hospital bed , calm and cooperative. Patient noted to be in good spirits states feeling "great". She states that she had been admitted due to recent suicide attempt which she is remorseful about and states that she is now in a good mood, denies feeling depressed, denies any suicidal ideations. She plans on seeing her who will be by today to pick her up after discharge. She states that her reasons to live are her grandchildren and wants to continue to live her life with her family. Denies SI, HI, AVH or delusions. Patient for discharge today. Please see discharge summary. Review of Systems Except as stated in HPI: all other systems reviewed are Neg Mental Status Examination Appearance: Appropriate Consciousness: Alert Orientation: x4 Motor Activity: Normal gait Speech: Unremarkable Language: Adequate Fund of Knowledge: Adequate Attention and Concentration: Adequate Memory: Unremarkable Mood: Appropriate Affect: Appropriate Thought Content: Appropriate Hallucination Type: None Delusion Type: None Suicidal Ideation: No Suicidal Plan: No Suicidal Intention: No Homicidal Ideation: No Homicidal Plan: No Homicidal Intention: No Insight: Fair Judgment: Adequate Results Labs labs reviewed Date/Time Source Procedure Growth Status 07/23/17 10:23 Blood Peripheral Aerobic Blood Culture - Preliminary NO GROWTH IN 1 DAY Resulted 07/23/17 10:23 Blood Peripheral Anaerobic Blood Culture - Preliminary NO GROWTH IN 1 DAY Resulted 07/23/17 04:30 Throat Group A Streptococcus Screen - Preliminary NO BETA STREPTOCOCCI ISOLATED AT 24 H... Resulted Vitals/IOs Vital Signs Date Time Temp Pulse Resp B/P (MAP) Pulse Ox O2 Delivery O2 Flow Rate FiO2 07/25/17 07:02 97.7 63 16 126/60 (82) 99 Intake and Output 07/25/17 07/25/17 07/26/17 08:00 16:00 00:00 Intake Total 240 ml Balance 240 ml Assessment & Plan Problem List: (1) Major depressive disorder, recurrent severe without psychotic features ICD Codes: F33.2 - Major depressive disorder, recurrent severe without psychotic features Assessment & Plan Patient no longer endorsing depressed mood, not endorsing suicidal ideation, future oriented with good support post discharge. Patient for discharge today. Justification for Cont. Inpt. Patient for discharge today Request HC Surrog/Guard Advoc?: No Petros Green MD 13, 2018 09:32
[2017-07-25] MEDS ORDERED: PRED20 PO (11:06)
--- NOTE | 2017-07-25 11:28 | HHI.PR ---
Subjective Remarks Pts rash does look improved today while still present it is not as erythematous looking. Pt reports some itching today She is anxious for discharge to home this evening. Objective Vitals Vital Signs Date Time Temp Pulse Resp B/P (MAP) Pulse Ox O2 Delivery O2 Flow Rate FiO2 07/25/17 07:02 97.7 63 16 126/60 (82) 99 07/24/17 16:50 97.1 89 17 119/56 (77) 100 07/25/17 07/25/17 07/26/17 14:59 22:59 06:59 Intake Total 240 ml Balance 240 ml Intake Oral 240 ml Result Diagram: 07/23/17 1015 07/23/17 1015 Objective Remarks General: NAD, AAOx3 Skin: Minimally erythematous, maculopapular rash on the neck/trunk/chest/back/ UE and upper thighs is confluent in some areas. There are some areas on the calves that seem to be centered around follicles. ENT: Thrush is improved Chest: CTA Cardiac: Regular, systolic murmur Abd: +BS, soft ND/NT Ext: no edema A/P Problem List: (1) Rash and nonspecific skin eruption ICD Codes: R21 - Rash and other nonspecific skin eruption Status: Acute Plan: - Pt developed a diffuse rash on 06/20/17 which is maculopapular nonpruritic rash on the neck/trunk/chest/back/UE and upper thighs that blanches and is confluent in some areas. There are some areas on the calves that seem to be centered around follicles. There is erythema on the palms of the hands as well - There was no noted mucosal or conjunctival involvement - Consider possible drug rash, new medications she recently received are Abilify and Diflucan - She has been receiving Benadryl 50mg Q6H, decreased down to 25mg Q8H as pr feels "foggy headed" - Pt was given oral Prednisone but not much improvement in the rash. - transferred on 07/23 to Med/Psych unit to have IV placed and started on IV Solu -Medrol 1 - UA was negative. - CBC, CMP were essentially normal - ESR minimally elevated at 41 - Throat culture negative for strep - Blood culture is pending. - This appears to possibly be a drug rash. - The Abilify has been stopped. - The rash continues to improve - Pt is planned for discharge to home this evening once her arrives from [place] - We will change the pt to po prednisone at discharge to taper off over the next few days. We offered for the pt to stay another day to convert to PO Prednisone in the hospital but the pt is insisting on going home today. - Pt has an appt with her PCP, Dr. Zeyad Sierra, on Thursday to re-evaluate her rash and to refer to outpt psychiatry. (2) Adjustment disorder ICD Codes: F43.20 - Adjustment disorder, unspecified Plan: - Patient with recent suicide attempt - Management per psychiatric team (3) Diabetes mellitus ICD Codes: E11.9 - Type 2 diabetes mellitus without complications Status: Chronic Plan: - Diabetic diet - Accu check ACHS - With Prednisone and Solu-Medrol. BS are increasing. Add back NovoLog SSI (4) GERD (gastroesophageal reflux disease) ICD Codes: K21.9 - Gastro-esophageal reflux disease without esophagitis Plan: - Protonix (5) Vaginal yeast infection ICD Codes: B37.3 - Candidiasis of vulva and vagina Plan: - Pt was given Diflucan by mouth 3 days (07/17-07/19) - Pt still with some noted thrush on examination - Improved with Nystatin S/S (6) Hypothyroidism ICD Codes: E03.9 - Hypothyroidism, unspecified Plan: - Continue home levothyroxine 137.5 mcg per day - TSH 2.010 (7) HTN (hypertension) ICD Codes: I10 - Essential (primary) hypertension Plan: - Pts Lisinopril was increased to 80mg HS on 07/17/17 - Meds changed on 07/22 to Lisinopril 20mg po BID and increase Norvasc to 10mg daily - Pt will be discharged on the Lisinopril 20mg BID and Norvasc 5mg BID. Assessment and Plan Patient examined. Assessment and plan formulated with Nusrat Parra PA-C. I agree with the above. Problem Qualifiers (1) Diabetes mellitus: Nusrat Parra Jul 25, 2017 11:28 Geraldo oMntez DO Jul 28, 2017 00:11
== END 2017-07-25 19:00 | disposition home or self-care (01) | DRG 885 ==
LOC: H260 16:14 → H4EA 07-23 17:59
PROVIDERS: ADMIT Psychiatry & Neurology Psychiatry; ATTEND Psychiatry & Neurology Psychiatry
DX: F33.2 Major depressive disorder, recurrent severe without psychotic features (principal); B37.0 Candidal stomatitis; E11.9 Type 2 diabetes mellitus without complications; I10 Essential (primary) hypertension; E03.9 Hypothyroidism, unspecified; B37.3 Candidiasis of vulva and vagina; K21.9 Gastro-esophageal reflux disease without esophagitis; R21 Rash and other nonspecific skin eruption; Z88.0 Allergy status to penicillin
CPT/HCPCS: 80048; 80053; 80061; 80076; 81001; 82948; 83036; 84443; 85025; 85652; 87040; 87081; 87880; 93005; J1815; J2930; J7512; Q0163